=== PATIENT | male | born 1990 | race Caucasian/White ===

== ENCOUNTER 2019-12-23 10:26 | Day surgery (SDC) | payer BC ==
[~2019-12-23] VITALS: Ht 157.5 cm; Wt 77.7 kg
[2019-12-23] MEDS ORDERED: DILANTIN 100MG100 MG PO ×2 (10:58)
[2019-12-23] MEDS ORDERED: PROTONIX 40MG T40 MG PO (10:59)
[2019-12-23 11:38] VITALS: BP 124/87; PULSE 85; TEMP 98.1
[2019-12-23 13:00] VITALS: BP 117/81; PULSE 85; TEMP 97.6
--- NOTE | 2019-12-23 13:00 | NUR ---
Pt to GI bay 5 via cart. Pt denies pain or nausea. Muffin and soda given per pt request. Father in room. Will continue to monitor. Call light within reach. Side rails up x2.
[2019-12-23 13:15] VITALS: BP 118/78; PULSE 81
--- NOTE | 2019-12-23 13:15 | NUR ---
Pt continues to rest. Denies pain or nausea. Pt tolerating food and fluids without diffiuclties. Call light within reach.
[2019-12-23 13:30] VITALS: BP 116/77; PULSE 80
--- NOTE | 2019-12-23 13:30 | NUR ---
Pt continues to rest. Will continue to monitor. Call light within reach.
--- NOTE | 2019-12-23 13:45 | NUR ---
IV site discontinued with all parts intact. Discharge instructions reviewed. Pt voices understanding. Pt up to dress. Call light within reach.
--- NOTE | 2019-12-23 14:00 | NUR ---
Pt escorted to private car via wheel chair. Pt accompanied home by his father.
== END 2019-12-23 14:00 | disposition home or self-care (01) ==
LOC: SDCO 10:26
DX: D12.2 Benign neoplasm of ascending colon (principal); K21.0 Gastro-esophageal reflux disease with esophagitis; K29.30 Chronic superficial gastritis without bleeding; R19.7 Diarrhea, unspecified; K76.0 Fatty (change of) liver, not elsewhere classified
CPT/HCPCS: J2250; J2704; J3010; J7030